=== PATIENT | male | born 1960 | race Caucasian/White ===

== ENCOUNTER 2021-09-10 13:29 | Emergency (ER) | payer BC ==
[2021-09-10] MEDS ORDERED: Iopamidol 370 76% 125 ML VIAL FS ONE (13:30)
[2021-09-10] MEDS ORDERED: Sodium Chloride 0.9% 100 ML BAG IVPB ONE (13:30)
[2021-09-10] MEDS ORDERED: Ibuprofen 600 MG TAB ONE (13:46)
[2021-09-10] MEDS ORDERED: Acetaminophen 500 MG TAB ONE (13:46)
[2021-09-10] MEDS ORDERED: Sodium Chloride 0.9% 2,000 ML ONE (14:43)
[2021-09-10 14:48] LABS: #Lymphocytes 0.5 thou/uL (1.20-3.40); #Monocytes 0.5 thou/uL (0.11-0.59); #Neutrophils 5.4 thou/uL (1.40-6.50); %Basophils 0.7 % (0.0-1.0); %Lymphocytes 8.2 % (21.0-51.0); %Monocytes 7.7 % (0.0-10.0); %Neutrophils 83.5 % (42.0-75.0); Hemoglobin 16.7 g/dL (14.0-18.0); Mean Corpuscular HGB CONC 33.1 g/dL (32.0-36.0); Mean Corpuscular Hemoglobin 29.6 pg (27.0-31.0); Mean Corpuscular Volume 89.6 fL (78.0-98.0); Mean Platelet Volume 7.2 fL (7.4-10.4); Platelet Count 153 thou/uL (130-400); RBC Distribution Width 11.5 % (11.5-14.5); Red Blood Cell (RBC) Count 5.64 mill/uL (4.70-6.10); White Blood Cell (WBC) Count 6.5 thou/uL (4.8-10.8)
[2021-09-10 15:07] LABS: ALT (SGPT) 54 U/L (8-55); AST (SGOT) 56 U/L (5-34); Albumin 3.8 g/dL (3.4-4.8); Alkaline Phosphatase 84 U/L (40-110); Anion Gap 16 mmol/L (10-20); BUN (Urea Nitrogen) 19 mg/dL (8.4-25.7); Bilirubin, Total 0.5 mg/dL (0.2-1.2); Calc. Creatinine Clearance 0 mL/min (70-130); Calcium 8.6 mg/dL (7.8-10.44); Carbon Dioxide 25 mmol/L (23-31); Chloride 97 mmol/L (98-107); Globulin 2.9 g/dL (2.4-3.5); Glucose 120 mg/dL (80-115); Potassium 4.4 mmol/L (3.5-5.1); Protein, Total 6.7 g/dL (5.8-8.1); Sodium 134 mmol/L (136-145)
[2021-09-10 16:00] LABS: SARS-CoV-2 NAA Rapid Test DETECTED (NotDetected)
[2021-09-10] MEDS ORDERED: Enoxaparin Sodium 40 MG/0.4 ML SYRINGE ONE (16:14)
[2021-09-10] MEDS ORDERED: Dexamethasone 10 MG/ML VIAL ONE (16:14)
[2021-09-10] MEDS ORDERED: Cefepime 2 GM VIAL ONE (16:14)
[2021-09-10] MEDS ORDERED: Azithromycin 500 MG VIAL ONE (16:14)
[2021-09-10] MEDS ORDERED: Sodium Chloride 0.9% 100 ML ONE (16:15)
[2021-09-10] MEDS ORDERED: Sodium Chloride 0.9% 250 ML 250 ML ONE (16:15)
== END 2021-09-10 21:25 | disposition short-term general hospital (02) ==
LOC: MADERS 13:29
DX: A41.9 Sepsis, unspecified organism (principal); U07.1 COVID-19; J12.82 Pneumonia due to coronavirus disease 2019; E87.1 Hypo-osmolality and hyponatremia; R09.02 Hypoxemia; I10 Essential (primary) hypertension; K21.9 Gastro-esophageal reflux disease without esophagitis; Z79.899 Other long term (current) drug therapy
CPT/HCPCS: 71275; 80053; 83605; 83735; 83880; 84484; 85025; 87040; 93005; 96365; 96367; 96372; 96375; J0456; J0692; J1100; J1650; J3490; J7050; Q9967; U0002